=== PATIENT | female | born 1955 | race Caucasian/White ===

== ENCOUNTER 2022-05-14 10:27 | Emergency (ER) | payer OTHER ==
[~2022-05-14] VITALS: Ht 165.1 cm; Wt 76.7 kg
[2022-05-14] MEDS ORDERED: LEVOTHYROXINE25 MCG PO (10:58)
[2022-05-14] MEDS ORDERED: PERCOCET 5-3251 EACH PO (12:32)
== END 2022-05-14 14:23 | disposition home or self-care (01) ==
LOC: ER 10:27
DX: S40.021A Contusion of right upper arm, initial encounter (principal); W18.39XA Other fall on same level, initial encounter; Y93.01 Activity, walking, marching and hiking